=== PATIENT | female | born 1955 | race Caucasian/White ===

== ENCOUNTER 2019-06-18 13:41 | Outpatient (CLI) | payer BC, SELFPAY ==
--- NOTE | ~2019-06-18 | CT_ITS ---
EXAMINATION: CT chest abdomen pelvis w con EXAM DATE: 06/18/2019 15:55 INDICATION: Pseudomyxoma peritonei. Abdominal pain. Pulmonary nodule. TECHNIQUE: Spiral CT of the chest, abdomen and pelvis was performed following intravenous injection o f 100 mL Omnipaque 350. Orally administered contrast solution was also used. Axial, coronal and sagit yrn images were reviewed. Coronal maximum intensity pixel images of chest reviewed. The dose-length product (DLP) for this examination was 1641.23 mGy-cm. The exposure was tailored according to patie nt size (auto mA exposure control), and iterative reconstruction (ASIR) was used as additional dose r eduction technique. Comparison is made to prior examination from 06/21/2018. FINDINGS: CHEST: Stable small amount of scattered lung post infectious residua. There are no pleural or peric ardial effusions. Tracheobronchial tree is patent. There is no mediastinal, hilar or axillary lym phadenopathy. There is no pneumothorax. Heart normal in size. There is mild coronary arterial c alcification, arterial sclerosis. ABDOMEN PELVIS: Again there are multiple thick walled centrally low, fluid density pockets along the anterior lower abdominal wall, with interval increase in size. For example, one of these regions david ures 5.6 x 3.8 cm today, was 4.1 x 2.1 cm in 2019. Again there are small nodules of soft tissue withi n the mesentery, also mild increase in size, for example one measuring 1.8 x 1.3 cm today, previously 1.4 x 0.7 cm. Small supraumbilical fat-containing hernia. There is ileocolic, rectosigmoid, and small bowel anastom otic material. There is a loop of mid small bowel bowel in the pelvis which is severely distended at about 6 cm. This particular segment does not appear to be adjacent to an anastomosis site. Most likel y its from chronic low-grade obstruction, caused by the pseudomyxoma peritonei. There is orally admin istered contrast both proximal and distal to this, it is not completely obstructed. The liver, spleen, adrenal glands and pancreas are unremarkable. Gallbladder not identified, patient likely has had cholecystectomy. Portal and splenic veins are patent. Kidneys enhance symmetrically . There is no hydronephrosis. The uterus is not identified and has likely been surgically resected . The bladder is unremarkable. There is no retroperitoneal. There is mild to moderate scattered a rteriosclerotic disease. There are no osteoblastic or osteolytic lesions identified. IMPRESSION: 1. Some increase in size of the abdominal wall cystic fluid regions and scattered mesenteric nodules , consistent with pseudomyxoma peritonei. 2. Single loop of severely distended small bowel likely from chronic low-grade obstruction, with ora l contrast making its distal to this. 3. Scattered small lung post infectious residua. Reviewed, dictated and finalized at location A. IMPRESSION: 1. Some increase in size of the abdominal wall cystic fluid regions and scatte red mesenteric nodules, consistent with pseudomyxoma peritonei. 2. Single loop of severely distended small bowel likely from chronic low-grade obstruction, with oral contrast making its distal to this. 3. Scattered small lung post infectious residua.
[2019-06-18 14:19] LABS: Estimated Glomerular Filt Rate > 60
== END 2019-06-18 13:42 | disposition home or self-care (01) ==
PROVIDERS: Family Provider Nurse Practitioner Adult Health; PCP Family Medicine
DX: D12.1 Benign neoplasm of appendix (principal); E61.1 Iron deficiency; C78.6 Secondary malignant neoplasm of retroperitoneum and peritoneum; R91.8 Other nonspecific abnormal finding of lung field
CPT/HCPCS: 36415; 71260; 74177; Q9967

== ENCOUNTER 2020-03-26 08:04 | Outpatient (CLI) | payer MEDICARE, SELFPAY ==
--- NOTE | ~2020-03-26 | MM_ITS ---
EXAMINATION: MM screening madyson BI w stevan HISTORY: Screening mammogram TECHNIQUE: Craniocaudal and mediolateral oblique 3-D tomosynthesis images were obtained and synthetic 2-D images were generated. CAD analysis was submitted and interpreted. COMPARISON: 01/20/2016, 10/17/2011, 10/14/2010 bilateral digital screening mammogram examinations BREAST PARENCHYMAL COMPOSITION: There are scattered areas of fibroglandular density. FINDINGS: There is no evidence of suspicious mass, calcification, or architectural distortion to sugg est malignancy in either breast. There has been no suspicious interval change. IMPRESSION: 1. No mammographic evidence of malignancy. 2. Recommend routine screening mammography in one year. BI-RADS Category 1: Negative Reviewed, dictated and finalized at location A. PRINTER
== END 2020-03-26 08:05 | disposition home or self-care (01) ==
LOC: ANHIMG 08:06
PROVIDERS: PCP Physician Assistant; Visit Provider Physician Assistant
DX: Z12.31 Encounter for screening mammogram for malignant neoplasm of breast (principal)
CPT/HCPCS: 77063; 77067

== ENCOUNTER 2020-05-26 12:44 | Outpatient (CLI) | payer MEDICARE, SELFPAY ==
--- NOTE | ~2020-05-26 | CT_ITS ---
EXAMINATION: CT chest abdomen pelvis w con DATE: 05/26/2020 15:30 INDICATION: Anemia. Gastroesophageal reflux. Pseudomyxoma peritonei. TECHNIQUE: Computed tomography (CT) of the chest, abdomen, and pelvis was performed with 100 cc Omnip aque 350 intravenous contrast. Automated exposure control and iterative reconstruction technique were employed. Exam dose: 1213.33 mGy-cm total exam DLP. COMPARISON: 06/18/2019 CT chest abdomen pelvis FINDINGS: CHEST CT: Normal heart size. Coronary artery calcification. No pericardial or pleural effusion. No thoracic aortic aneurysm or dissection. No hilar or mediastinal mass lesion or lymphadenopathy. Fatty breasts. No axillary lymphadenopathy. There is mild bilateral apical pulmonary scarring. Calcified right lower lobe pulmonary granuloma. No pulmonary infiltrate or consolidation or pulmonary mass lesion is evident. ABDOMEN/PELVIS CT: No hepatic space-occupying mass lesion. The gallbladder is likely surgically absent which likely accounts for mild prominence of the intrahep atic and extra hepatic bile ducts. No pancreatic mass lesion or calcification or pancreatic duct dila tation. The spleen is absent. Normal morphology of the adrenal glands. No renal mass lesion or urinary tract calculus or hydroureteronephrosis. The urinary bladder is evacu ated and not optimally evaluated. Status post hysterectomy. There is atherosclerotic calcification of the abdominal aorta and branches, including particularly stewart perior mesenteric artery at its origin is also calcifications at the origins of the renal arteries. N o abdominal aortic aneurysm. Iliac and femoral artery calcifications. There are scattered mesenteric masses or nonenlarged mesenteric lymph nodes, not enlarged since 2018. Scattered small nodular intraperitoneal densities are noted within the right lower quadrant, ma rked increased in size since 06/21/2018. No interval intraperitoneal or retroperitoneal or pelvic mass lesion or lymphadenopathy is evident otherwise. There is resolution of multiple areas of fluid atten uation adjacent to small bowel since 06/21/2018. There is interval postoperative change of the anterior abdominal wall, with apparent interval resecti on of previously reported abdominal wall cystic regions reportedly related to pseudomyxoma peritonei. There is a suture line at the distal sigmoid colon. No bowel obstruction is evident. No intraperitone al free air. No suspicious osteolytic or osteoblastic lesions.. IMPRESSION: Interval resection of cystic masses of anterior abdominal wall and resolution of fluid d ensity lesions along the small bowel since 06/18/2019; no significant new masses are noted Status post cholecystectomy Status post hysterectomy Status post distal sigmoid colon resection Reviewed, dictated and finalized at [facility]. Reviewed, dictated and finalized at location [facility]. IMPRESSION: Interval resection of cystic masses of anterior abdominal wall and resolution of fluid density lesions along the small bowel since 06/18/2019; no s ignificant new masses are noted Status post cholecystectomy Status post hysterectomy Status post distal sigmoid colon resection
[2020-05-27 09:00] LABS: Estimated Glomerular Filt Rate > 60
== END 2020-05-26 12:45 | disposition home or self-care (01) ==
PROVIDERS: PCP Physician Assistant
DX: K21.9 Gastro-esophageal reflux disease without esophagitis (principal); D50.9 Iron deficiency anemia, unspecified; C78.6 Secondary malignant neoplasm of retroperitoneum and peritoneum; Z90.49 Acquired absence of other specified parts of digestive tract; Z90.710 Acquired absence of both cervix and uterus
CPT/HCPCS: 71260; 74177; Q9967

== ENCOUNTER 2024-11-19 14:38 | Outpatient (CLI) | payer MEDICARE, SELFPAY ==
--- NOTE | ~2024-11-19 | XR_ITS ---
EXAMINATION: XR hip RT min 2V, 11/19/2024 15:39 CDT HISTORY: PAIN IN RIGHT HIP COMPARISON: No comparisons available. Findings: No acute fracture or malalignment. No significant degenerative changes. Soft tissues unremarkable. Impression: No acute fracture or malalignment. Reviewed, dictated and finalized at location P. Impression: No acute fracture or malalignment.
--- NOTE | ~2024-11-19 | US_ITS ---
EXAMINATION: US venous doppler LE RT, 11/19/2024 15:02 CDT HISTORY: M79.89 - Other specified soft tissue disorders Comparison: None Technique: Colon-scale and color Doppler images were attempted of the lower saphenofemoral junction, common femoral vein,superficial femoral vein, proximal deep femoral vein, proximal deep femoral vein, popliteal vein and posterior tibial veins. Findings: Deep Venous System:Normal flow, augmentation and compressibility. No echogenic thrombus identified. The contralateral saphenofemoral junction appears unremarkable. Superficial Venous SystemNo superficial thrombophlebitis. Soft tissues: Soft tissues are unremarkable. Impression: Negative for DVT. Reviewed, dictated and finalized at location P. Impression: Negative for DVT.
--- NOTE | ~2024-11-19 | XR_ITS ---
EXAMINATION: XR knee LT min 4V, 11/19/2024 15:39 CDT HISTORY: PAIN IN L KNEE COMPARISON: No comparisons available. Findings: No acute fracture or malalignment. Moderate tricompartmental degenerative changes, small effusion Soft tissues unremarkable. Impression: No acute fracture or malalignment. Reviewed, dictated and finalized at location P. Impression: No acute fracture or malalignment.
== END 2024-11-19 14:39 | disposition home or self-care (01) ==
PROVIDERS: PCP Family Medicine; Visit Provider Family Medicine
DX: M79.89 Other specified soft tissue disorders (principal); M25.562 Pain in left knee; M25.551 Pain in right hip
CPT/HCPCS: 73502; 73564; 93971